=== PATIENT | female | born 1935 | race Caucasian/White ===

== ENCOUNTER 2018-05-30 12:50 | Emergency (ER) | payer OTHER, MEDICAID ==
[~2018-05-30] VITALS: Ht 160 cm; Wt 61.2 kg
[2018-05-30 13:08] VITALS: BP_SYST 134
[2018-05-30 15:25] VITALS: BP_SYST 113
== END 2018-05-30 15:06 | disposition home or self-care (01) ==
LOC: SED 12:50
DX: S52.92XA Unspecified fracture of left forearm, initial encounter for closed fracture (principal); F03.90 Unspecified dementia, unspecified severity, without behavioral disturbance, psychotic disturbance, mood disturbance, and anxiety; I10 Essential (primary) hypertension; Z86.73 Personal history of transient ischemic attack (TIA), and cerebral infarction without residual deficits; X58.XXXA Exposure to other specified factors, initial encounter; Y93.89 Activity, other specified; Y92.89 Other specified places as the place of occurrence of the external cause; Y99.8 Other external cause status
CPT/HCPCS: 73060-TC; 73090; 99283